=== PATIENT | male | born 1965 | race African-American/Black ===

== ENCOUNTER 2021-12-02 15:56 | Inpatient (IN) | payer BC, OTHER ==
[~2021-12-02] VITALS: Ht 170.2 cm; Wt 82.1 kg
[2021-12-02] MEDS ORDERED: HYDROCODONE/ACETAMINOPHEN 5/325MG TABLET PO ONE (16:45)
[2021-12-02 18:35] LABS: BASOPHILS % 0.5 % (0.0-2.0); EOSINOPHILS % 1.8 % (0.0-5.0); HEMATOCRIT. 33.8 % (42.0-52.0); HEMOGLOBIN. 10.8 g/dL (14.0-18.0); LYMPHOCYTES % 32.6 % (20.0-50.0); MEAN CORPUSCULAR HEMOGLOBIN 22.7 pg (28.0-32.0); MEAN CORPUSCULAR VOLUME 70.9 fL (80.0-94.0); MEAN PLATELET VOLUME 6.2 fl (7.4-10.4); MONOCYTES % 9.1 % (2.0-8.0); PLATELET 438 x1000/uL (130-400); RED BLOOD CELL COUNT 4.76 mill/uL (4.7-6.1); RED CELL DISTRIBUTION WIDTH 16.1 % (11.6-14.6)
[2021-12-02 18:43] LABS: PROTHROMBIN TIME 10.8 sec (9.6-11.0)
[2021-12-02 18:56] LABS: CHLORIDE 104 mEq/L (98-107)
[2021-12-03] VITALS (51 sets, daily range): BP systolic 114–148; BP diastolic 66–93
[2021-12-03] MEDS ORDERED: GENTAMICIN SULF 40MG/ML 2ML VIAL ONE (07:55)
[2021-12-03] MEDS ORDERED: MORPHINE SULFATE 4 MG/ML CPJ (NOT FOR IM USE) IV PRN ×2 (08:00→14:00)
[2021-12-03] MEDS ORDERED: ROCURONIUM BROMIDE 10MG/ML VIAL 5ML IV ONE (08:39)
[2021-12-03] MEDS ORDERED: DEXAMETHASONE 4MG/ML 1ML VIAL ONE (09:02)
[2021-12-03] MEDS ORDERED: HYDROMORPHONE HCL/PF 2MG/ML CPJ ONE (09:11)
[2021-12-03] MEDS ORDERED: CALCIUM CHLORIDE 1GM/10ML SYR IV ONE (09:26)
[2021-12-03] MEDS ORDERED: ALBUMIN HUMAN 25GM/100ML (25%) IV ONE (09:26)
[2021-12-03] MEDS ORDERED: NEOSTIGMINE METHYLSULFATE 1MG/ML 10 ML VIAL ONE (09:37)
[2021-12-03] MEDS ORDERED: GLYCOPYRROLATE 0.2 MG/ML 2ML VIAL ONE ×2 (09:37)
[2021-12-03] MEDS ORDERED: HYDRALAZINE 20MG/ML VIAL ONE (09:42)
[2021-12-03] MEDS ORDERED: METOPROLOL TARTRATE 5MG/5ML VIAL IV ONE (09:42)
[2021-12-03] MEDS ORDERED: CEFAZOLIN 1000MG PREMIX 50 ML IV SCH (10:00)
[2021-12-03] MEDS ORDERED: NALOXONE HCL 0.4MG/ML VIAL IV PRN (10:15)
[2021-12-03] MEDS: NICARDIPINE 100 MG in SODIUM CHLORIDE 0.9% 60 ML IV PRN ×2 (11:01→23:55)
[2021-12-03] MEDS ORDERED: LIDOCAINE HCL 1% 10 MG/ML 10ML VIAL ONE (12:59)
[2021-12-03] MEDS: HYDROCODONE/ACETAMINOPHEN 5/325MG TABLET PO PRN ×2 (13:22→23:46)
[2021-12-03] MEDS: DEXT 5%/LACTATED RINGERS 1,000 ML IV SCH ×3 (13:22→23:55)
[2021-12-03] MEDS ORDERED: CEFAZOLIN SODIUM 1000MG/VIAL IV SCH (14:00)
[2021-12-03] MEDS: CEFAZOLIN 1000MG PREMIX 50 ML IV SCH (16:21)
[2021-12-03] MEDS ORDERED: LOSA25TA26 PO (20:26)
[2021-12-04] VITALS (87 sets, daily range): BP systolic 110–154; BP diastolic 59–120
[2021-12-04] MEDS: CEFAZOLIN 1000MG PREMIX 50 ML IV SCH ×3 (00:26→16:39)
[2021-12-04 06:18] LABS: BASOPHILS % 0.4 % (0.0-2.0); EOSINOPHILS % 0.1 % (0.0-5.0); HEMATOCRIT. 32.8 % (42.0-52.0); HEMOGLOBIN. 10.8 g/dL (14.0-18.0); LYMPHOCYTES % 11.8 % (20.0-50.0); MEAN CORPUSCULAR VOLUME 69.6 fL (80.0-94.0); MEAN PLATELET VOLUME 6.6 fl (7.4-10.4); MONOCYTES % 6.8 % (2.0-8.0); NEUTROPHILS % 80.9 % (40.0-76.0); PLATELET 400 x1000/uL (130-400); RED BLOOD CELL COUNT 4.72 mill/uL (4.7-6.1); RED CELL DISTRIBUTION WIDTH 15.8 % (11.6-14.6)
[2021-12-04 06:30] LABS: CHLORIDE 102 mEq/L (98-107)
[2021-12-04] MEDS: HYDROCODONE/ACETAMINOPHEN 5/325MG TABLET PO PRN ×3 (08:05→21:32)
[2021-12-04] MEDS: PANTOPRAZOLE SODIUM 40 MG/VIAL IV SCH (08:32)
[2021-12-04] MEDS: DEXT 5%/LACTATED RINGERS 1,000 ML IV SCH ×2 (14:36→22:37)
[2021-12-04] MEDS: NICARDIPINE 100 MG in SODIUM CHLORIDE 0.9% 60 ML IV PRN (14:59)
[2021-12-04] MEDS: DEXAMETHASONE 4MG/ML 1ML VIAL IV SCH (18:56)
[2021-12-05] VITALS (63 sets, daily range): BP systolic 110–161; BP diastolic 50–102
[2021-12-05] MEDS: CEFAZOLIN 1000MG PREMIX 50 ML IV SCH ×2 (00:33→07:58)
[2021-12-05] MEDS: DEXAMETHASONE 4MG/ML 1ML VIAL IV SCH ×5 (00:33→18:10)
[2021-12-05 06:19] LABS: BASOPHILS % 0.6 % (0.0-2.0); EOSINOPHILS % 0.4 % (0.0-5.0); HEMATOCRIT. 37.8 % (42.0-52.0); HEMOGLOBIN. 12.2 g/dL (14.0-18.0); LYMPHOCYTES % 11.3 % (20.0-50.0); MEAN CORPUSCULAR HEMOGLOBIN 22.7 pg (28.0-32.0); MEAN PLATELET VOLUME 6.8 fl (7.4-10.4); NEUTROPHILS % 83.7 % (40.0-76.0); PLATELET 433 x1000/uL (130-400); RED CELL DISTRIBUTION WIDTH 15.6 % (11.6-14.6)
[2021-12-05] MEDS: PANTOPRAZOLE SODIUM 40 MG/VIAL IV SCH (07:58)
[2021-12-05] MEDS: HYDROCODONE/ACETAMINOPHEN 5/325MG TABLET PO PRN ×3 (07:59→21:14)
[2021-12-05] MEDS ORDERED: HYDR-4001 PO (08:18)
[2021-12-05] MEDS ORDERED: ATOR20TA65 PO (08:18)
[2021-12-05] MEDS ORDERED: SILD50TA52 PO (08:18)
[2021-12-05] MEDS ORDERED: VALS80TA30 PO (08:18)
[2021-12-05 08:24] LABS: CHLORIDE 101 mEq/L (98-107)
[2021-12-05] MEDS: LOSARTAN POTASSIUM 25 MG TABLET PO SCH ×2 (10:09→21:14)
[2021-12-05] MEDS: DEXT 5%/LACTATED RINGERS 1,000 ML IV SCH ×2 (10:09→21:12)
[2021-12-05 11:36] LABS: PLATELET ESTIMATE INCREASED
[2021-12-05] MEDS ORDERED: CEFTRIAXONE 2 G PREMIX 50 ML IV SCH (11:45)
[2021-12-05] MEDS ORDERED: VANCOMYCIN 1,750 MG in DEXT 5% WATER 250 ML IV NR (14:00)
[2021-12-05] MEDS: CEFTRIAXONE 2 G in DEXTROSE 5% WATER 50 ML IV SCH (14:36)
[2021-12-05] MEDS: VANCOMYCIN 1250MG in DEXTROSE 5% WATER 250ML IV SCH (23:12)
[2021-12-06] VITALS: BP 130/80
[2021-12-06] MEDS: CEFTRIAXONE 2 G in DEXTROSE 5% WATER 50 ML IV SCH ×2 (01:26→13:16)
[2021-12-06 04:00] VITALS: BP 134/84
[2021-12-06] MEDS: DEXT 5%/LACTATED RINGERS 1,000 ML IV SCH ×2 (05:09→17:17)
[2021-12-06 06:10] LABS: BASOPHILS % 0.2 % (0.0-2.0); HEMATOCRIT. 36.6 % (42.0-52.0); HEMOGLOBIN. 11.6 g/dL (14.0-18.0); LYMPHOCYTES % 10.8 % (20.0-50.0); MEAN CORPUSCULAR HEMOGLOBIN 22.1 pg (28.0-32.0); MEAN CORPUSCULAR VOLUME 69.6 fL (80.0-94.0); MEAN PLATELET VOLUME 6.6 fl (7.4-10.4); MONOCYTES % 6.6 % (2.0-8.0); NEUTROPHILS % 82.4 % (40.0-76.0); PLATELET 402 x1000/uL (130-400); RED BLOOD CELL COUNT 5.26 mill/uL (4.7-6.1); RED CELL DISTRIBUTION WIDTH 15.9 % (11.6-14.6)
[2021-12-06 06:26] LABS: CHLORIDE 101 mEq/L (98-107)
[2021-12-06 08:00] VITALS: BP 156/96
[2021-12-06] MEDS: HYDROCODONE/ACETAMINOPHEN 5/325MG TABLET PO PRN ×2 (08:59→17:16)
[2021-12-06] MEDS: LOSARTAN POTASSIUM 25 MG TABLET PO SCH ×2 (08:59→21:34)
[2021-12-06] MEDS: PANTOPRAZOLE SODIUM 40 MG/VIAL IV SCH (08:59)
[2021-12-06] MEDS: VANCOMYCIN 1250MG in DEXTROSE 5% WATER 250ML IV SCH ×2 (11:13→23:03)
[2021-12-06 12:00] VITALS: BP 128/85
[2021-12-06 16:00] VITALS: BP 131/71
[2021-12-06 20:00] VITALS: BP 125/90
[2021-12-07] MEDS: CEFTRIAXONE 2 G in DEXTROSE 5% WATER 50 ML IV SCH (01:20)
[2021-12-07] MEDS: DEXT 5%/LACTATED RINGERS 1,000 ML IV SCH ×3 (02:00→22:00)
[2021-12-07 04:56] VITALS: BP 147/89
[2021-12-07 06:43] LABS: CHLORIDE 105 mEq/L (98-107)
[2021-12-07 08:00] VITALS: BP 147/92
[2021-12-07] MEDS: LOSARTAN POTASSIUM 25 MG TABLET PO SCH ×2 (08:59→21:38)
[2021-12-07] MEDS: FAMOTIDINE 20MG TABLET PO SCH ×2 (08:59→21:41)
[2021-12-07] MEDS: HYDROCODONE/ACETAMINOPHEN 5/325MG TABLET PO PRN ×2 (10:31→20:11)
[2021-12-07 12:00] VITALS: BP 137/84
[2021-12-07] MEDS ORDERED: VANCOMYCIN 1G PREMIX 200 ML IV SCH (12:00)
[2021-12-07 12:09] LABS: CREATINE KINASE 43 IU/L (39-308)
[2021-12-07 16:00] VITALS: BP 132/86
[2021-12-07] MEDS: DAPTOMYCIN 700 MG in SODIUM CHLORIDE 0.9% 50 ML IV SCH (17:05)
[2021-12-07 20:00] VITALS: BP 119/92
[2021-12-08 04:00] VITALS: BP 149/99
[2021-12-08] MEDS: HYDROCODONE/ACETAMINOPHEN 5/325MG TABLET PO PRN (06:10)
[2021-12-08 08:00] VITALS: BP 132/84
[2021-12-08] MEDS: DEXT 5%/LACTATED RINGERS 1,000 ML IV SCH ×2 (08:00→17:54)
[2021-12-08] MEDS: LOSARTAN POTASSIUM 25 MG TABLET PO SCH ×2 (08:56→20:31)
[2021-12-08] MEDS: FAMOTIDINE 20MG TABLET PO SCH ×2 (08:56→20:31)
[2021-12-08 12:00] VITALS: BP 136/85
[2021-12-08 12:59] LABS: BASOPHILS % 1.1 % (0.0-2.0); EOSINOPHILS % 2.4 % (0.0-5.0); HEMATOCRIT. 39.3 % (42.0-52.0); HEMOGLOBIN. 12.7 g/dL (14.0-18.0); LYMPHOCYTES % 33.1 % (20.0-50.0); MEAN CORPUSCULAR HEMOGLOBIN 22.9 pg (28.0-32.0); MEAN CORPUSCULAR VOLUME 70.9 fL (80.0-94.0); MEAN PLATELET VOLUME 7.1 fl (7.4-10.4); MONOCYTES % 8.5 % (2.0-8.0); NEUTROPHILS % 54.9 % (40.0-76.0); PLATELET 351 x1000/uL (130-400); RED BLOOD CELL COUNT 5.54 mill/uL (4.7-6.1); RED CELL DISTRIBUTION WIDTH 15.9 % (11.6-14.6)
[2021-12-08 13:08] LABS: CHLORIDE 102 mEq/L (98-107)
[2021-12-08] MEDS: DAPTOMYCIN 700 MG in SODIUM CHLORIDE 0.9% 50 ML IV SCH (14:45)
[2021-12-08] MEDS: ACETAMINOPHEN 325MG TABLET PO PRN (15:36)
[2021-12-08 16:00] VITALS: BP 129/74
[2021-12-08 20:00] VITALS: BP 145/87
[2021-12-08 23:41] VITALS: BP 139/84
[2021-12-09 04:00] VITALS: BP 141/80
[2021-12-09 08:00] VITALS: BP 140/95
[2021-12-09] MEDS: FAMOTIDINE 20MG TABLET PO SCH ×2 (08:55→20:44)
[2021-12-09] MEDS: LOSARTAN POTASSIUM 25 MG TABLET PO SCH (08:55)
[2021-12-09] MEDS: ACETAMINOPHEN 325MG TABLET PO PRN (09:29)
[2021-12-09 11:59] VITALS: BP 138/74
[2021-12-09] MEDS: DAPTOMYCIN 700 MG in SODIUM CHLORIDE 0.9% 50 ML IV SCH (13:54)
[2021-12-09] MEDS: DEXT 5%/LACTATED RINGERS 1,000 ML IV SCH ×2 (13:55→13:56)
[2021-12-09 15:10] VITALS: BP 138/74
[2021-12-09 16:02] VITALS: BP 144/92
[2021-12-09 20:00] VITALS: BP 161/78
[2021-12-09] MEDS: LOSARTAN POTASSIUM 50 MG TABLET PO SCH (20:43)
[2021-12-10] VITALS (7 sets, daily range): BP systolic 123–148; BP diastolic 59–88
[2021-12-10] MEDS: FAMOTIDINE 20MG TABLET PO SCH ×2 (08:49→20:58)
[2021-12-10] MEDS: ASPIRIN 81MG EC TABLET PO SCH (08:49)
[2021-12-10] MEDS: LOSARTAN POTASSIUM 50 MG TABLET PO SCH ×2 (08:49→20:58)
[2021-12-10] MEDS: DEXT 5%/LACTATED RINGERS 1,000 ML IV SCH ×2 (10:00→20:00)
[2021-12-10] MEDS: DAPTOMYCIN 700 MG in SODIUM CHLORIDE 0.9% 50 ML IV SCH (14:38)
[2021-12-10] MEDS: ACETAMINOPHEN 325MG TABLET PO PRN (20:45)
[2021-12-11] MEDS: DEXT 5%/LACTATED RINGERS 1,000 ML IV SCH ×2 (03:17→16:09)
[2021-12-11 05:00] VITALS: BP 135/85
[2021-12-11 08:00] VITALS: BP 144/98
[2021-12-11] MEDS: ASPIRIN 81MG EC TABLET PO SCH (08:05)
[2021-12-11] MEDS: FAMOTIDINE 20MG TABLET PO SCH (08:05)
[2021-12-11] MEDS: ACETAMINOPHEN 325MG TABLET PO PRN ×2 (08:05→14:19)
[2021-12-11] MEDS: LOSARTAN POTASSIUM 50 MG TABLET PO SCH (08:05)
[2021-12-11] MEDS: DAPTOMYCIN 700 MG in SODIUM CHLORIDE 0.9% 50 ML IV SCH (14:18)
== END 2021-12-11 17:35 | disposition home health service (06) | DRG 907 ==
LOC: ER 15:56 → MICUSO 18:10 → ENRESERV 18:33 → CANRESERV 18:33 → MICUSO 12-03 12:34 → 6EST 12-05 15:25
PROVIDERS: ADMIT Internal Medicine; ATTEND Internal Medicine
PROC: 009U00Z Drainage of Spinal Canal with Drainage Device, Open Approach (ICD-10-PCS; principal; 2021-12-03)
PROC: 02HV33Z Insertion of Infusion Device into Superior Vena Cava, Percutaneous Approach (ICD-10-PCS; 2021-12-03)
PROC: B548ZZA Ultrasonography of Superior Vena Cava, Guidance (ICD-10-PCS; 2021-12-03)
DX: G97.52 Postprocedural hemorrhage of a nervous system organ or structure following other procedure (principal); G82.50 Quadriplegia, unspecified; L02.11 Cutaneous abscess of neck; I10 Essential (primary) hypertension; D64.9 Anemia, unspecified; I25.10 Atherosclerotic heart disease of native coronary artery without angina pectoris; I11.9 Hypertensive heart disease without heart failure; E78.5 Hyperlipidemia, unspecified; E11.9 Type 2 diabetes mellitus without complications; D72.829 Elevated white blood cell count, unspecified; Z86.61 Personal history of infections of the central nervous system; Z79.899 Other long term (current) drug therapy
CPT/HCPCS: 36415; 36573; 71045; 72141; 80048; 80053; 80202; 82550; 84145; 85025; 87070; 87075; 87077; 87186; 87426; 88304; 93005; 97110; 97116; 97162; 97530; 97535; 99285; C1725; C9113; J0360; J0690; J0696; J0878; J1100; J1170; J1580; J2270; J2710; J3370; J3490; J7050; J7060; J7121; L0172; P9047

== ENCOUNTER 2021-12-21 11:52 | Inpatient (IN) | payer OTHER ==
[~2021-12-21] VITALS: Ht 170.2 cm; Wt 83.9 kg
[~2021-12-21 11:52] MED LIST: ATOR20TA65 PO; HYDR-4001 PO; LOSA25TA26 PO; SILD50TA52 PO; VALS80TA30 PO
[2021-12-21] MEDS ORDERED: SODIUM CHLORIDE 0.9% 1,000 ML IV ONE (12:15)
[2021-12-21 13:31] LABS: BASOPHILS % 1.2 % (0.0-2.0); EOSINOPHILS % 2.2 % (0.0-5.0); HEMATOCRIT. 32.9 % (42.0-52.0); HEMOGLOBIN. 10.7 g/dL (14.0-18.0); LYMPHOCYTES % 26.1 % (20.0-50.0); MEAN CORPUSCULAR HEMOGLOBIN 23.2 pg (28.0-32.0); MEAN CORPUSCULAR VOLUME 71.1 fL (80.0-94.0); MEAN PLATELET VOLUME 7.4 fl (7.4-10.4); MONOCYTES % 8.3 % (2.0-8.0); NEUTROPHILS % 62.2 % (40.0-76.0); PLATELET 342 x1000/uL (130-400); RED BLOOD CELL COUNT 4.63 mill/uL (4.7-6.1); RED CELL DISTRIBUTION WIDTH 16.5 % (11.6-14.6)
[2021-12-21 13:35] LABS: CHLORIDE 105 mEq/L (98-107)
[2021-12-21 13:36] LABS: INR 1.1; PROTHROMBIN TIME 11.4 sec (9.6-11.0)
[2021-12-21 17:03] LABS: CLARITY URINE CLEAR (CLEAR); COLOR URINE YELLOW (YELLOW); KETONES URINE 1+ (NEGATIVE); LEUKOCYTE ESTERASE URINE NEGATIVE (NEGATIVE); NITRITE URINE NEGATIVE (NEGATIVE); OCCULT BLOOD URINE NEGATIVE (NEGATIVE); PH URINE 5.5 (4.5-8.0); PROTEIN URINE NEGATIVE (NEGATIVE); SPECIFIC GRAVITY URINE 1.022 (1.005-1.030); UROBILINOGEN URINE 0.2 E.U./dL (0.2-1.0)
[2021-12-21 19:53] VITALS: BP 153/98
[2021-12-21 20:00] VITALS: BP 153/92
[2021-12-21] MEDS ORDERED: ONDANSETRON HCL 4MG/2ML INJ IV PRN (22:45)
[2021-12-21] MEDS ORDERED: HYDROCODONE/ACETAMINOPHEN 5/325MG TABLET PO PRN (23:45)
[2021-12-21] MEDS ORDERED: NALOXONE HCL 0.4MG/ML VIAL IV PRN (23:45)
[2021-12-22] VITALS (8 sets, daily range): BP systolic 122–155; BP diastolic 77–102
[2021-12-22] MEDS: DAPTOMYCIN 700 MG in SODIUM CHLORIDE 0.9% 50 ML IV SCH (02:05)
[2021-12-22] MEDS ORDERED: HYDRALAZINE 20MG/ML VIAL IV PRN (05:45)
[2021-12-22] MEDS: PANTOPRAZOLE 40MG DR TABLET PO SCH (06:37)
[2021-12-22 07:27] LABS: BASOPHILS % 0.9 % (0.0-2.0); EOSINOPHILS % 2.7 % (0.0-5.0); HEMATOCRIT. 32.4 % (42.0-52.0); HEMOGLOBIN. 10.6 g/dL (14.0-18.0); LYMPHOCYTES % 30.6 % (20.0-50.0); MEAN CORPUSCULAR HEMOGLOBIN 22.9 pg (28.0-32.0); MEAN CORPUSCULAR VOLUME 69.8 fL (80.0-94.0); MEAN PLATELET VOLUME 7.4 fl (7.4-10.4); MONOCYTES % 8.3 % (2.0-8.0); NEUTROPHILS % 57.5 % (40.0-76.0); PLATELET 363 x1000/uL (130-400); RED BLOOD CELL COUNT 4.64 mill/uL (4.7-6.1); RED CELL DISTRIBUTION WIDTH 16.6 % (11.6-14.6)
[2021-12-22 07:50] LABS: CHLORIDE 107 mEq/L (98-107)
[2021-12-22] MEDS: LOSARTAN POTASSIUM 25 MG TABLET PO SCH (08:41)
[2021-12-22] MEDS: ASPIRIN 81MG EC TABLET PO SCH (08:41)
[2021-12-22 18:44] LABS: CREATINE KINASE 770 IU/L (39-308)
[2021-12-22] MEDS ORDERED: ATORVASTATIN CALCIUM 20MG TABLET PO SCH (21:00)
[2021-12-23] VITALS: BP 145/88
[2021-12-23] MEDS: DAPTOMYCIN 700 MG in SODIUM CHLORIDE 0.9% 50 ML IV SCH (02:20)
[2021-12-23 04:00] VITALS: BP 136/94
[2021-12-23] MEDS: PANTOPRAZOLE 40MG DR TABLET PO SCH (05:45)
[2021-12-23 08:00] VITALS: BP_SYST 138; BP_SYST 150; BP_DIAS 92
[2021-12-23] MEDS: ASPIRIN 81MG EC TABLET PO SCH (08:36)
[2021-12-23] MEDS: LOSARTAN POTASSIUM 25 MG TABLET PO SCH (08:36)
[2021-12-23 12:00] VITALS: BP_SYST 142; BP_SYST 143; BP_SYST 147; BP_DIAS 95; BP_DIAS 97; BP_DIAS 98
[2021-12-23 16:00] VITALS: BP 144/91
[2021-12-23] MEDS: LINEZOLID 600 MG PREMIX 300 ML IV SCH (18:01)
[2021-12-23 20:00] VITALS: BP_SYST 146; BP_SYST 150; BP_SYST 152; BP_DIAS 80; BP_DIAS 84; BP_DIAS 87
[2021-12-23 21:01] LABS: CREATINE KINASE 692 IU/L (39-308)
[2021-12-24] VITALS: BP 145/83
[2021-12-24] MEDS: PANTOPRAZOLE 40MG DR TABLET PO SCH (05:21)
[2021-12-24] MEDS: LINEZOLID 600 MG PREMIX 300 ML IV SCH ×2 (05:21→18:03)
[2021-12-24 08:00] VITALS: BP_SYST 144; BP_SYST 153; BP_SYST 159; BP_DIAS 93; BP_DIAS 96; BP_DIAS 97
[2021-12-24] MEDS: LOSARTAN POTASSIUM 25 MG TABLET PO SCH (09:05)
[2021-12-24] MEDS: ASPIRIN 81MG EC TABLET PO SCH (09:05)
[2021-12-24 12:00] VITALS: BP 146/93
[2021-12-24 16:00] VITALS: BP 142/88
[2021-12-24] MEDS ORDERED: LINE600T14 PO (16:24)
[2021-12-24 20:00] VITALS: BP_SYST 156; BP_SYST 158; BP_SYST 167; BP_DIAS 88; BP_DIAS 94
[2021-12-24 23:30] VITALS: BP_SYST 142; BP_SYST 145; BP_DIAS 88
[2021-12-25] MEDS: LINEZOLID 600 MG PREMIX 300 ML IV SCH (05:14)
[2021-12-25 07:38] LABS: BASOPHILS % 0.6 % (0.0-2.0); EOSINOPHILS % 2.2 % (0.0-5.0); HEMATOCRIT. 36.3 % (42.0-52.0); HEMOGLOBIN. 11.9 g/dL (14.0-18.0); LYMPHOCYTES % 29.8 % (20.0-50.0); MEAN CORPUSCULAR VOLUME 70.2 fL (80.0-94.0); MEAN PLATELET VOLUME 7.3 fl (7.4-10.4); MONOCYTES % 8.3 % (2.0-8.0); NEUTROPHILS % 59.1 % (40.0-76.0); PLATELET 369 x1000/uL (130-400); RED BLOOD CELL COUNT 5.17 mill/uL (4.7-6.1); RED CELL DISTRIBUTION WIDTH 16.7 % (11.6-14.6)
[2021-12-25 07:43] LABS: CHLORIDE 103 mEq/L (98-107)
[2021-12-25 07:58] LABS: CREATINE KINASE 423 IU/L (39-308)
[2021-12-25 08:00] VITALS: BP 150/87
[2021-12-25] MEDS ORDERED: FAMOTIDINE 20MG TABLET PO SCH (09:00)
[2021-12-25] MEDS: ASPIRIN 81MG EC TABLET PO SCH (09:07)
[2021-12-25] MEDS: LOSARTAN POTASSIUM 25 MG TABLET PO SCH (09:07)
[2021-12-25 12:00] VITALS: BP 152/67
[2021-12-25 14:47] VITALS: BP 152/78
[2021-12-25 16:00] VITALS: BP 156/89
== END 2021-12-25 18:30 | disposition home health service (06) | DRG 312 ==
LOC: ER 12:07 → 8WST 15:29 → EDBEDREQ 16:07 → EDBEDREQTM 16:07 → ENRESERV 18:13
PROVIDERS: ADMIT Internal Medicine; ATTEND Internal Medicine
DX: R55 Syncope and collapse (principal); G06.1 Intraspinal abscess and granuloma; G82.50 Quadriplegia, unspecified; Z16.21 Resistance to vancomycin; E86.0 Dehydration; E78.00 Pure hypercholesterolemia, unspecified; I25.10 Atherosclerotic heart disease of native coronary artery without angina pectoris; D50.9 Iron deficiency anemia, unspecified; E88.09 Other disorders of plasma-protein metabolism, not elsewhere classified; I10 Essential (primary) hypertension; B95.2 Enterococcus as the cause of diseases classified elsewhere; Z79.891 Long term (current) use of opiate analgesic; Z79.899 Other long term (current) drug therapy; Z87.891 Personal history of nicotine dependence; Z86.61 Personal history of infections of the central nervous system
CPT/HCPCS: 36415; 71045; 80048; 80053; 81003; 82550; 83605; 84145; 84484; 85025; 85651; 86140; 93005; 97110; 97116; 97161; 97162; 99285; J0360; J0878; J2020; J7030

== ENCOUNTER 2023-06-22 03:49 | Emergency (ER) | payer OTHER ==
[~2023-06-22] VITALS: Ht 172.7 cm; Wt 84.0 kg
[~2023-06-22 03:49] MED LIST changes: +LINE600T14 PO; -VALS80TA30 PO
[2023-06-22 04:00] VITALS: O2SAT 98
[2023-06-22 06:28] LABS: HEMATOCRIT. 38.4 % (42.0-52.0); HEMOGLOBIN. 12.3 g/dL (14.0-18.0); MEAN CORPUSCULAR HEMOGLOBIN 23.1 pg (28.0-32.0); MEAN CORPUSCULAR HGB CONC 32.1 g/dL (31.0-37.0); MEAN CORPUSCULAR VOLUME 72.1 fL (80.0-94.0); MEAN PLATELET VOLUME 7.1 fl (7.4-10.4); PLATELET 340 x1000/uL (130-400); RED BLOOD CELL COUNT 5.33 mill/uL (4.7-6.1); RED CELL DISTRIBUTION WIDTH 16.3 % (11.6-14.6)
[2023-06-22 06:33] LABS: DIFFERENTIAL COMMENT 1
[2023-06-22 06:42] LABS: ALANINE AMINOTRANSFERASE 15 IU/L (10-49); ALBUMIN 4.1 g/dL (3.2-4.8); ASPARTATE AMINOTRANSFERASE 22 IU/L (<34); BILIRUBIN TOTAL 0.4 mg/dL (0.1-1.0); CALCIUM 8.9 mg/dL (8.7-10.4); CARBON DIOXIDE 27 mEq/L (21-32); CHLORIDE 106 mEq/L (98-107); CREATININE 0.7 mg/dL (0.6-1.3); GLUCOSE 86 mg/dL (70-105); PROTEIN TOTAL 7.2 g/dL (6.0-8.3); SODIUM 141 mEq/L (136-145); UREA NITROGEN BLOOD 13 mg/dL (9-23)
[2023-06-22 07:52] LABS: MICROCYTOSIS 1+; PLATELET ESTIMATE NORMAL
[2023-06-22 07:54] LABS: ANISOCYTOSIS 1+; OVALOCYTES 1+
[2023-06-22] MEDS ORDERED: FAMO-123 PO (07:56)
[2023-06-22 08:57] VITALS: BP 121/78; PULSE 71; RESP 16; TEMP 98.1
== END 2023-06-22 08:58 | disposition home or self-care (01) ==
LOC: ER 03:49
DX: K31.9 Disease of stomach and duodenum, unspecified (principal); E78.00 Pure hypercholesterolemia, unspecified; I10 Essential (primary) hypertension; F12.10 Cannabis abuse, uncomplicated
CPT/HCPCS: 80053; 82270; 85025; 36415; 99283; Z7610 ×2